=== PATIENT | female | born 1945 | race Caucasian/White ===

== ENCOUNTER → 2019-09-04 12:04 | Outpatient (BNVA) | payer MEDICARE, MEDICAID, SELFPAY | PROVIDERS: Family Provider Family Medicine; PCP Family Medicine; Visit Provider Nurse Practitioner Family | DX: N39.46 Mixed incontinence (principal); N81.9 Female genital prolapse, unspecified | CPT/HCPCS: 81001; 87086 ==

== ENCOUNTER 2019-09-11 02:11 | Emergency (ER) | payer MEDICARE, MEDICAID, SELFPAY | END 2019-09-11 03:57 | disposition left against medical advice (07) | PROVIDERS: Emergency Provider Physician Assistant; Family Provider Family Medicine; PCP Family Medicine | DX: N39.46 Mixed incontinence (principal); Z53.21 Procedure and treatment not carried out due to patient leaving prior to being seen by health care provider | CPT/HCPCS: 99281 ==